=== PATIENT | male | born 2000 | race Hispanic/Latino ===

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

== ENCOUNTER 2022-05-16 23:09 | Emergency (ER) | payer MEDICAID ==
[~2022-05-16] VITALS: Ht 177.8 cm; Wt 100.7 kg
[2022-05-17 01:12] VITALS: BP 142/74
[2022-05-17] MEDS ORDERED: DICL100T85 PO (01:14)
[2022-05-17] MEDS ORDERED: METH-662 PO (01:14)
== END 2022-05-17 01:37 | disposition home or self-care (01) ==
LOC: EDH 23:09
DX: M54.6 Pain in thoracic spine (principal); M54.2 Cervicalgia; F84.0 Autistic disorder; Z79.1 Long term (current) use of non-steroidal anti-inflammatories (NSAID)
CPT/HCPCS: 71045; 72040; 73010